=== PATIENT | female | born 1995 | race Caucasian/White ===

== ENCOUNTER → 2016-06-09 | Outpatient (CLI) | payer MEDICAID ==
[~2016-06-09] MED LIST: AMBIEN 10MG10 MG PO; ATIVAN2 MG PO; FERROUS SU325 MG/TAB PO; FLAGYL 250250 MG/TAB PO; LAMICTAL 100MG100 MG PO; LEXAPRO 10MG10 MG PO; MACROBID 1100 MG/CAP PO; MOTRIN 600600 MG/TAB PO; PERCOCET 325 MG1 TA2 PO; PRENATAL1 TA1 PO; SPRINTEC 35 MCG1 TAB PO; UNABLE
== END ==
LOC: BHSO 14:23
DX: F31.81 Bipolar II disorder (principal)

== ENCOUNTER → 2016-08-23 | Outpatient (CLI) | payer MEDICAID | LOC: BHSO 09:44 | DX: F31.73 Bipolar disorder, in partial remission, most recent episode manic (principal) ==

== ENCOUNTER → 2016-10-25 | Outpatient (CLI) | payer MEDICAID | LOC: BHSO 13:01 | DX: F41.1 Generalized anxiety disorder (principal) ==

== ENCOUNTER → 2016-12-21 | Outpatient (CLI) | payer MEDICAID | LOC: BHSO 15:42 | DX: F31.81 Bipolar II disorder (principal) ==

== ENCOUNTER → 2017-02-28 | Outpatient (CLI) | payer MEDICAID | LOC: BHSO 15:23 | DX: F41.1 Generalized anxiety disorder (principal) ==

== ENCOUNTER → 2017-06-16 | Outpatient (CLI) | payer MEDICAID | LOC: BHSO 13:39 | DX: F31.73 Bipolar disorder, in partial remission, most recent episode manic (principal) | CPT/HCPCS: G0463 ==

== ENCOUNTER → 2017-12-22 | Outpatient (CLI) | payer MEDICAID | LOC: BHSO 14:19 | DX: F31.81 Bipolar II disorder (principal) | CPT/HCPCS: G0463 ==

== ENCOUNTER → 2018-03-12 | Outpatient (CLI) | payer MEDICAID | LOC: BHSO 14:04 | DX: F41.0 Panic disorder [episodic paroxysmal anxiety] (principal) | CPT/HCPCS: G0463 ==